=== PATIENT | male | born 1960 | race Caucasian/White ===

== ENCOUNTER 2025-08-04 13:46 | Outpatient (CLI) | payer MEDICARE, MEDICAID, SELFPAY ==
--- NOTE | 2025-08-04 13:50 | CT_ITS ---
FINAL REPORT TECHNIQUE: Axial CT images of the chest were obtained without contrast. Low-dose protocol was utilized. This study was performed with techniques to keep radiation doses as low as reasonably achievable (ALARA). Individualized dose reduction techniques using automated exposure control or adjustment of mA and/or kV according to the patient's size were employed. CLINICAL HISTORY: SCREENING, 1 pack per day x 50 yrs, copd, lung cancer in first degree relative, exposed to second hand smoke COMPARISON: None FINDINGS: CT CHEST WITHOUT, LOW DOSE SCREENING CT Di Vol: 2.90 mGy DLP: 119.59 mGy*cm Densely calcified precarinal and right hilar lymph nodes are noted. The heart size is normal. There are dense vascular calcifications in the aortic arch. There is no pleural or pericardial effusion. The lung windows show a multitude of irregular densities identified in both lungs. Dominant focus in the right upper lobe measures 1.7 cm in greatest dimension, well-seen on image 35 of series 4. Other smaller lesions are identified in the left upper lobe, left lower lobe, and right middle lobe. All demonstrate irregular margins and are noncalcified. Calcified granulomas are noted at the lung bases. Limited images of the upper abdomen demonstrate no acute findings. IMPRESSION: Irregular densities in both lungs. Dominant focus in the right upper lobe. Findings may represent multifocal pneumonia or scarring from multifocal pneumonia. LR Category 0: 1 month follow-up low-dose chest CT is recommended per Fleischner criteria. Reviewed, Interpreted and Dictated by Nader Lutz MD Transcribed by Shahla Barron Authenticated and . [facility]
== END 2025-08-04 23:59 | disposition home or self-care (01) ==
LOC: RAD 13:48
PROVIDERS: PCP Nurse Practitioner; Visit Provider Nurse Practitioner
DX: Z12.2 Encounter for screening for malignant neoplasm of respiratory organs (principal); F17.210 Nicotine dependence, cigarettes, uncomplicated; J44.9 Chronic obstructive pulmonary disease, unspecified; Z80.1 Family history of malignant neoplasm of trachea, bronchus and lung; R91.8 Other nonspecific abnormal finding of lung field; J98.4 Other disorders of lung; I70.0 Atherosclerosis of aorta; I89.8 Other specified noninfective disorders of lymphatic vessels and lymph nodes
CPT/HCPCS: 71271